=== PATIENT | male | born 1960 | race Caucasian/White ===

== ENCOUNTER → 2017-01-13 | Outpatient (CLI) | payer OTHER ==
[2017-01-13 13:29] LABS: BUN 7 mg/dL (7-18); GFR (ESTIMATED) 78 ML/MIN (>60)
[2017-01-13 14:08] LABS: HEMOGLOBIN 14.7 g/dL (14.1-18.0); LYMPH # 1.9 K/mm3 (0.7-4.5); LYMPH % 26.8 % (10-50)
== END ==
LOC: CARL-LAB 09:03
PROVIDERS: Internal Medicine Adolescent Medicine
DX: E78.5 Hyperlipidemia, unspecified (principal); I10 Essential (primary) hypertension